=== PATIENT | female | born 1940 | race African-American/Black ===

== ENCOUNTER 2016-11-15 11:53 | Emergency (ER) | payer OTHER ==
[~2016-11-15] VITALS: Ht 152.4 cm; Wt 41.7 kg
[~2016-11-15 11:53] MED LIST: ARICEPT10 M1 PO; CENTRUM SILVER1 EAC4 PO; FENTANYL PA25 MCG/HR TD; FENTANYL PA25 MCG/HR TRANSDERM; FENTANYL TD; FIRST AID ANT28.4 GM TP; FLEXERIL PO; HYDROCODONE-AP1 EAC6 PO; LIDODERM 5%1 PATC1 TRANSDERM; LORTAB 7.5-3251 EACH PO; MOBIC7.5 MG PO; NAMENDA 10 MG T10 MG PO; NORCO 5-325 TA1 EACH PO; PERCOCET 7.5-31 EACH PO; PREDNISONE 10 M10 MG PO; TRAMADOL 50 MG50 MG; TRAMADOL 50 MG50 MG PO; VALIUM2 MG PO; VALIUM5 MG PO; VOLTAREN GEL 1100 G2 TOP; ZETIA10 MG PO; ZPAK PO
[2016-11-15] MEDS ORDERED: CELEXA20 MG PO (12:17)
[2016-11-15] MEDS ORDERED: VALIUM2 MG PO (12:47)
[2016-11-19] MEDS ORDERED: BACLOFEN 10MG T10 MG PO (11:44)
[2016-11-19] MEDS ORDERED: VOLTAREN GEL 1100 G2 TOP (11:44)
[2016-12-03] MEDS ORDERED: FENTANYL PA12 MCG/HR TD (11:43)
[2016-12-03] MEDS ORDERED: CYMBALTA30 MG PO (11:43)
[2016-12-03] MEDS ORDERED: FENTANYL PA25 MCG/HR TRANSDERM (11:43)
[2016-12-27] MEDS ORDERED: TRAZODONE HCL50 MG PO (12:48)
[2016-12-27] MEDS ORDERED: FENTANYL PA25 MCG/HR TD (13:03)
[2016-12-27] MEDS ORDERED: FENTANYL PA25 MCG/HR TRANSDERM (13:03)
[2016-12-27] MEDS ORDERED: TRAMADOL 50 MG50 MG PO (13:03)
== END 2016-11-15 13:30 | disposition home or self-care (01) ==
LOC: ER 11:53
DX: M62.838 Other muscle spasm (principal); M54.2 Cervicalgia; G89.29 Other chronic pain; F03.90 Unspecified dementia, unspecified severity, without behavioral disturbance, psychotic disturbance, mood disturbance, and anxiety

== ENCOUNTER → 2016-11-19 | Outpatient (CLI) | payer OTHER ==
[~2016-11-19] VITALS: Ht 152.4 cm; Wt 43.4 kg
[~2016-11-19] MED LIST changes: +BACLOFEN 10MG T10 MG PO; +CELEXA20 MG PO; +CYMBALTA30 MG PO; +FENTANYL PA12 MCG/HR TD; +TRAZODONE HCL50 MG PO
--- NOTE | ~2016-11-19 | HPC ---
[facility] [place] [address] PAIN MANAGEMENT CONSULTATION Name: VIDAL GARCIAELVIORALIA Room #: REG JUSTYNAHaley Soares#: [id number] Admission: 11/19/16 Attend Phys: Kin Ly DO Discharge: Date of : 39 Report #: [id number] THIS REPORT FOR: //name// CC: Celi Ly The patient is a pleasant 76-year-old female last seen in the pain clinic on 10/11/2016. She has right shoulder DJD symptoms. She is status post cervical decompressive laminectomy, has cognitive impairment with some dementia, requires complex medication management. Last seen on 10/11/2016, and continued on Duragesic 25 mcg q.72 hours, periodic tramadol p.r.n. She was seen in the ER 11/15/2016 for increasing right shoulder pain. I did speak with Dr. Logan at that time and started her on some Valium 2 mg t.i.d. for spasm. She returns to pain clinic today. The Valium may or may not be helping with spasm, but she certainly is getting sedated with it. She has significant tenderness in the right shoulder, though on physical exam passive rotation of the shoulder really does not exacerbate pain, but she is very tender in the trapezius, splenius capitis on the right, and even a little on the trapezius on the left. She is tolerating other medications generally well. ASSESSMENT: 1. Symptomatic myofascial pain in a patient with prior history of right shoulder degenerative joint disease, cervical radiculopathy status post decompressive laminectomy, dementia, and complex medication management. RECOMMENDATIONS: 1. Discontinue nabumetone. We will start Baclofen 10 mg t.i.d. 2. We will also trial some Voltaren gel topically. 2. Acute myofascial pain. RECOMMENDATION: Trigger points x 3. PROCEDURE NOTE: After written informed consent was obtained, the patient was placed in a seated position. Trigger points identified in the left and right trapezius and right splenius capitis were identified. Area was cleansed with alcohol, using a 27-gauge needle, 40 mg triamcinolone plus 5 mL of 0.5% preservative-free bupivacaine plus 5 mL of 1.5% preservative-free Xylocaine with 1:100,000 epinephrine was injected into and around all three triggers. Needle was removed. The area was cleansed. Band-Aids applied. The patient monitored for an appropriate period of time, discharged in good and stable condition, noting significant improvement of baseline pain. Follow up will be as needed for medication management. <ELECTRONICALLY SIGNED> By: Kin Ly DO 11/22/16 1228 [id number] Kin Ly DO /nt
[2016-11-19 11:02] VITALS: BP 124/76
== END | disposition home or self-care (01) ==
LOC: PAIN 07:00
DX: M79.1 Myalgia (principal); M19.011 Primary osteoarthritis, right shoulder; M54.12 Radiculopathy, cervical region; F03.90 Unspecified dementia, unspecified severity, without behavioral disturbance, psychotic disturbance, mood disturbance, and anxiety

== ENCOUNTER → 2017-02-24 | Outpatient (CLI) | payer OTHER ==
[~2017-02-24] VITALS: Ht 152.4 cm; Wt 43.5 kg
--- NOTE | ~2017-02-24 | HPC ---
[facility] [place] [address] PAIN MANAGEMENT CONSULTATION Name: EASTON GARCIA Room #: REG JUSTYNAHaley Soares#: [id number] Admission: 02/24/17 Attend Phys: Kin Ly DO Discharge: Date of : 39 Report #: [id number] THIS REPORT FOR: //name// CC: Celi Ly HISTORY OF PRESENT ILLNESS: The patient is a pleasant 76-year-old female with fairly significant cognitive impairment. She has been treated for right shoulder pain, cervical radiculopathy, myofascial pain requiring complex medication management. Last seen in the pain clinic 12/27/2016. We reviewed EMG of right upper extremity, noting a mild chronic C6 or C7 radiculopathy without ongoing denervation. Correlate this with the MRI from 2012 noting a right paracentral disk C4-C5 shallow based disk protrusion more on the right at C6-C7. We talked about cervical injection; however, the patient has significant cervical and thoracic kyphosis. She is getting more and more impaired from dementia. I was concerned that patient will not be able to lay still for an injection and was quite concerned that cervical epidural injection may afford more risk than actual benefit. Returns to pain clinic today noting current medications are helpful, she has continued on Duragesic 75 mcg q. 72 hours, tramadol 50 mg, typically prescribed 2 or 3 tablets today. She is taking up to 4 or 5 tablets a day. Her gets her medicine. He is a very empathetic gentleman. They are for a very long time. He points out that it is very difficult for him to not give her medicine, when she complains of pain. Today, she notes pain is 10, which she normal does. Pain is in the right shoulder, arm. PHYSICAL EXAMINATION: Shows again cervical thoracic kyphosis, some pain in the trapezius and deltoid muscles. We talked about trigger point injection today, though prior trigger point injection actually exacerbated pain. Upper extremity strength is diminished and range of motion is diminished at about 30%. Again, difficult to get the patient to cooperate with exam at times. She is easily distracted. Concern with chronic pain in the elderly with cognitive impairment. At some point, they tend to amplify the pain sensation, as it is the only consistent cerebral input. ASSESSMENT: Right shoulder degenerative joint disease, cervical radiculopathy, myofascial pain requiring complex medication management. PLAN: Long discussion with the patient and her and her niece, who typically takes care of her and is seen at most of the appointments with her. We have elected ultimately to simply continue baseline medications. Again, we did briefly talk about cervical epidural injection and/or trigger point injections, but ultimately decided against all interventional therapy. Discharged in good and stable condition. Follow up in 2 months for [facility] [address] [place] [address] PAIN MANAGEMENT CONSULTATION Name: JACKIE GARCIADANTE Room #: REG ZULAY Soares#: [id number] Admission: 02/24/17 Attend Phys: Kin Ly DO Discharge: Date of : 39 Report #: [id number] reevaluation. Continue Duragesic and tramadol enabling up to 4 or 5 tablets a day. By: [id number] Kin Ly DO /nt
[2017-02-24 10:29] VITALS: BP 153/65
== END | disposition home or self-care (01) ==
LOC: PAIN 01-27 13:29
DX: M19.011 Primary osteoarthritis, right shoulder (principal); M54.12 Radiculopathy, cervical region; M79.1 Myalgia

== ENCOUNTER → 2017-04-21 | Outpatient (CLI) | payer OTHER ==
[~2017-04-21] VITALS: Ht 152.4 cm; Wt 44.3 kg
[2017-04-21 10:57] VITALS: BP 129/67
== END | disposition home or self-care (01) ==
LOC: PAIN 06:41
DX: M54.12 Radiculopathy, cervical region (principal); G89.29 Other chronic pain; M25.511 Pain in right shoulder; M79.1 Myalgia; M54.9 Dorsalgia, unspecified; F11.20 Opioid dependence, uncomplicated; Z98.890 Other specified postprocedural states

== ENCOUNTER → 2017-05-23 | Outpatient (CLI) | payer OTHER ==
[~2017-05-23] VITALS: Ht 152.4 cm; Wt 43.5 kg
[~2017-05-23] MED LIST changes: +ZANAFLEX2 MG PO
--- NOTE | ~2017-05-23 | HPC ---
[facility] [address] [address] PAIN MANAGEMENT CONSULTATION Name: EASTON GARCIA Room #: REG ZULAY Soares#: [id number] Admission: 05/23/17 Attend Phys: Kin Ly DO Discharge: Date of : 39 Report #: [id number] THIS REPORT FOR: //name// CC: Celi Ly The patient is a 76-year-old female typically treated for cervical radiculopathy, right shoulder pain and myofascial pain requiring ____ high risk complex medication management with concern for ongoing dementia. Last visit 04/21/2017, the patient was continued on Duragesic 25 mcg q. 72 hours, tramadol for breakthrough pain 50 mg 3 or 4 a day, Voltaren gel topical. We talked about a Lidoderm patch, which has been quite efficacious for her neck, she puts it on at night. She returns to pain clinic today with her and [id number]. We had tried baclofen, which unfortunately caused untoward sedation. She does use Tylenol 500 mg, they were asking about using the little more robust Tylenol Arthritis strength (typically 650 mg), I suggest they could consider this, but still limited to about 3 tablets a day. She rates her subjective pain at 8/10 today; however, again she is a little confused and she is strongly assisted with her and [id number], who provide great care for her. She does note in a positive note that last she started a chair based upper extremity range of motion and exercise class. She thinks that this has been a little helpful, but it did make her neck and shoulder and arm, perhaps a little worse. Her notes that she has some light touch allodynia in the morning. It tends to be "all lower" arms and legs. I am unclear exactly what is exactly causing this. PHYSICAL EXAMINATION: Today is basically unchanged, 76-year-old female, quite frail, BMI is 18.7 kilograms per meter squared. Vital signs are stable. Cervical range of motion is limited. Right shoulder is painful with limited range of motion. Upper extremity strength both left and right shows limited range of motion and she is quite frail. We reviewed the fact that opiate medications are being used to provide analgesia adequate to support activities of daily living, not attempting to achieve a specific pain score on the 0-10 Visual Analog Scale. The current opiate medications are providing sufficient analgesia to allow the patient to participate in activities of daily living. The patient is not exhibiting any aberrant behavior suggestive of drug diversion. [place] [address] PAIN MANAGEMENT CONSULTATION Name: EASTON GARCIA Room #: REG ZULAY Soares#: [id number] Admission: 05/23/17 Attend Phys: Kin Ly DO Discharge: Date of : 39 Report #: [id number] adverse reactions to medications. The patient is not suffering from daytime somnolence or mental acuity changes. The patient is managing opiate-induced constipation with appropriate tmfv-[id number] agents and dietary considerations. The patient was counseled on concern for caution with operating a motor vehicle while using opiate medications. A physical exam was performed and the patient's functional status was evaluated. All patients with back pain were advised against the bed rest greater than 4 days and were advised to return to normal activities. Pain score assessment was noted and the treatment plan was reviewed with the patient. All current medications, both prescribed and OTC were reviewed and reconciled on the electronic medical record. Tobacco screening was accomplished and smoking cessation was advised when indicated. BMI was noted and diet/exercise modification was recommended for all patients following outside normal parameters. I reviewed with the patient today their responsibilities to safeguard prescription medications, reviewed their responsibility to utilize medications only as prescribed by the physician. They are to seek and receive pain medications only from 1 physician group ( [facility]). They are to use 1 pharmacy and keep the clinic informed if they change pharmacies. Their responsibilities include making followup visits in a timely fashion and to avoid abrupt discontinuation of medication usage. Their responsibilities further include bringing their medications (bottles from the pharmacy with residual pills) to the visit for possible confirmation of pill counts and the patient understands it is their responsibility to submit to random drug screens to ensure both that the medications prescribed are present, and that no other controlled substances are present. All prescriptions provided today were generated electronically. ASSESSMENT: Cervical radiculopathy, myofascial pain, right shoulder DJD, dementia, requiring complex medication management. RECOMMENDATION: Continue baseline narcotic fentanyl 25 mcg q. 72 hours, tramadol as needed for breakthrough pain, limit 100 tablets for 30 days, we will alternate this with Tylenol Arthritis strength, limiting 3 tablets a day (assuming it is a 650 mg tablet, this is still less than 2000 mg). Continue Voltaren gel topically and Lidoderm patches. Discharged in good and stable condition. By: [id number] Kin Ly DO /nt
[2017-05-23 14:14] VITALS: BP 144/59
== END | disposition home or self-care (01) ==
LOC: PAIN 07:45
DX: M54.12 Radiculopathy, cervical region (principal); G89.29 Other chronic pain; M19.011 Primary osteoarthritis, right shoulder; M79.1 Myalgia; Z79.891 Long term (current) use of opiate analgesic; Z98.890 Other specified postprocedural states

== ENCOUNTER → 2017-07-21 | Outpatient (CLI) | payer OTHER ==
[~2017-07-21] VITALS: Ht 152.4 cm; Wt 43.5 kg
[~2017-07-21] MED LIST changes: +DURAGESIC25 MCG/HR TRANSDERM; +Fentanyl Patch 25 Mc TRANSDERM
--- NOTE | ~2017-07-21 | HPC ---
[facility] [place] [place] [address] PAIN MANAGEMENT CONSULTATION Name: EASTON GARCIA Room #: REG JUSTYNAHaley Soares#: [id number] Admission: 07/21/17 Attend Phys: Kin Ly DO Discharge: Date of : 39 Report #: [id number] THIS REPORT FOR: //name// CC: Celi Ly DATE OF SERVICE: 07/21/2017 DATE OF SERVICE: 07/21/2017 HISTORY OF PRESENT ILLNESS: The patient is a 77-year-old female well known to pain clinic, being treated for symptomatic cervical radiculopathy, right shoulder DJD requiring high risk complex medication management. Medical management is complicated by ongoing dementia. Last seen in the pain clinic 05/23/2017. Ultimately, we have continued the patient on Duragesic 25 mcg q. 72 hours with tramadol for breakthrough pain 50 mg 3-4 times a day. She is using Voltaren gel topically, primarily for right shoulder and neck. Lidoderm patch has been efficacious for her low back and neck as well. Unfortunately, this is not covered by insurance. We talked about trialing Salonpas with 4% lidocaine (Lidoderm patches were typically 5% lidocaine, but without insurance coverage cost ran up to $10 a patch!). We also talked at last visit about using Tylenol Extra Strength p.r.n., with a 650 mg tablets suggest they could use up to 3 tablets a day as a co-analgesic with tramadol. Today, the patient is again seen in company of her who is very supportive. Typically, she is also seen with a tnlima-be-bja. Today, she is seen with one of her adult daughters from [place]. Rating her pain a 7 on VAS. Chronic constant, stabbing, aching pain exacerbated with activity. The comments that the patient has trouble sleeping on days when she is more sedentary, they do go to the [facility] in [place] "____ view." They walk there for 20-30 minutes and do some exercises including both bicycle type exercises for her arms and a bicycle for the legs as well. These pedal activities do give the patient a much better night's sleep. Today, we did talk length about trying to avoid chemically-induced sedation and trying to simply keep the patient more active during the day, so she will be tired and get a more natural type sleep. Again, with cognitive impairment, we are trying to avoid more central acting agents. PHYSICAL EXAMINATION: Relatively unchanged. A pleasant 77-year-old female, somewhat frail with a BMI of 18.7 kilograms per meter squared. Vital signs are stable, blood pressure 125/61, pulse 70, respirations 16. Alert and oriented, [facility] [address] [place] [address] PAIN MANAGEMENT CONSULTATION Name: RADHAEASTON Room #: REG ZULAY Soares#: [id number] Admission: 07/21/17 Attend Phys: Kin Ly DO Discharge: Date of : 39 Report #: [id number] but not to place or time, is oriented to person, does note pain in the right shoulder and arm, exacerbated with any and all movement. She has a significant cervical flexion and some thoracic kyphosis. When encouraged, she will extend her neck and look at the horizon, but typically keeps her head slumped forward. Gait is modestly ataxic, though after a few steps, she does have a little more normal-type gait. We reviewed the fact that opiate medications are being used to provide analgesia adequate to support activities of daily living, not attempting to achieve a specific pain score on the 0-10 Visual Analog Scale. The current opiate medications are providing sufficient analgesia to allow the patient to participate in activities of daily living. The patient is not exhibiting any aberrant behavior suggestive of drug diversion. The patient is not having any adverse reactions to medications. The patient is not suffering from daytime somnolence or mental acuity changes. The patient is managing opiate-induced constipation with appropriate gylq-qiu-blceqyd agents and dietary considerations. The patient was counseled on concern for caution with operating a motor vehicle while using opiate medications. A physical exam was performed and the patient's functional status was evaluated. All patients with back pain were advised against the bed rest greater than 4 days and were advised to return to normal activities. Pain score assessment was noted and the treatment plan was reviewed with the patient. All current medications, both prescribed and OTC were reviewed and reconciled on the electronic medical record. Tobacco screening was accomplished and smoking cessation was advised when indicated. BMI was noted and diet/exercise modification was recommended for all patients following outside normal parameters. I reviewed with the patient today their responsibilities to safeguard prescription medications, reviewed their responsibility to utilize medications only as prescribed by the physician. They are to seek and receive pain medications only from 1 physician group ( [facility]). They are to use 1 pharmacy and keep the clinic informed if they change pharmacies. Their responsibilities include making followup visits in a timely fashion and to avoid abrupt discontinuation of medication usage. Their responsibilities further include bringing their medications (bottles from the pharmacy with residual pills) to the visit for possible confirmation of pill counts and the patient understands it is their responsibility to submit to random drug screens to ensure both that the medications prescribed are present, and that no other controlled substances are present. All prescriptions provided today were generated electronically. ASSESSMENT: Chronic pain syndrome, right shoulder degenerative joint disease, cervical radiculopathy requiring high risk complex medication management, management complicated by dementia. The patient has a very strong and supportive family. They tell me today they [facility] [address] [place] [address] PAIN MANAGEMENT CONSULTATION Name: EASTON GARCIA Room #: REG ZULAY CampbellJo-Ann.#: [id number] Admission: 07/21/17 Attend Phys: Kin Ly DO Discharge: Date of : 39 Report #: [id number] are planning on becoming "[employer]" traveling to live with another daughter in [place] from August through December. RECOMMENDATIONS: I told him I can write for their scheduled 2 narcotic for up to 3 months; however, she will need to be seen by a physician in [place]. I told her I will try contact some physicians in the [place] area to see if we can find someone who will be able to see her perhaps in November or December simply to continue her care and I will resume her care when they return in December. The patient was discharged in good and stable condition today. <ELECTRONICALLY SIGNED> By: Kin Ly DO 07/25/17 0840 [id number] Kin Ly DO /nt
[2017-07-21 12:52] VITALS: BP 125/61
== END ==
LOC: PAIN 06:36
DX: M47.892 Other spondylosis, cervical region (principal); M19.011 Primary osteoarthritis, right shoulder